=== PATIENT | female | born 1995 | race African-American/Black ===

== ENCOUNTER 2019-08-08 00:59 | Observation (INO) | payer MEDICAID ==
[~2019-08-08] VITALS: Ht 157.5 cm; Wt 50.0 kg
[2019-08-08 01:33] VITALS: BP 123/79
[2019-08-08] MEDS ORDERED: ACETAMINOPHEN 325MG TABLET PO ONE (01:45)
[2019-08-08] MEDS ORDERED: PREN1TAB78 PO (05:49)
== END 2019-08-08 04:22 | disposition home or self-care (01) ==
LOC: ER 00:59 → 8 EST LDRP 04:01
PROVIDERS: ADMIT Obstetrics & Gynecology; ATTEND Obstetrics & Gynecology
DX: O9A.213 Injury, poisoning and certain other consequences of external causes complicating pregnancy, third trimester (principal); S16.1XXA Strain of muscle, fascia and tendon at neck level, initial encounter; S39.012A Strain of muscle, fascia and tendon of lower back, initial encounter; O26.893 Other specified pregnancy related conditions, third trimester; R10.9 Unspecified abdominal pain; Z3A.28 28 weeks gestation of pregnancy; V43.52XA Car driver injured in collision with other type car in traffic accident, initial encounter; Y93.89 Activity, other specified; Y92.89 Other specified places as the place of occurrence of the external cause; Y99.8 Other external cause status
CPT/HCPCS: 76805; 76818; 99284; G0378

== ENCOUNTER 2019-09-04 15:57 | Observation (INO) | payer MEDICAID ==
[~2019-09-04] VITALS: Ht 160 cm; Wt 88.5 kg
[~2019-09-04 15:57] MED LIST: PREN1TAB78 PO
[2019-09-04] MEDS ORDERED: LACTATED RINGERS 1,000 ML IV SCH (16:41)
[2019-09-04 17:22] LABS: CLARITY URINE CLOUDY (CLEAR); COLOR URINE YELLOW (YELLOW); KETONES URINE TRACE (NEGATIVE); LEUKOCYTE ESTERASE URINE TRACE (NEGATIVE); NITRITE URINE NEGATIVE (NEGATIVE); OCCULT BLOOD URINE NEGATIVE (NEGATIVE); PROTEIN URINE NEGATIVE (NEGATIVE)
== END 2019-09-04 18:15 | disposition home or self-care (01) ==
LOC: 8 EST LDRP 15:57
PROVIDERS: ADMIT Obstetrics & Gynecology; ATTEND Obstetrics & Gynecology
DX: O26.893 Other specified pregnancy related conditions, third trimester (principal); O99.89 Other specified diseases and conditions complicating pregnancy, childbirth and the puerperium; Z3A.33 33 weeks gestation of pregnancy; R10.30 Lower abdominal pain, unspecified; M54.5 Low back pain
CPT/HCPCS: 81003; 96360; 99281; G0378

== ENCOUNTER 2019-10-21 22:23 | Observation (INO) | payer MEDICAID ==
[~2019-10-21] VITALS: Ht 160 cm; Wt 88.5 kg
[2019-10-26] MEDS ORDERED: PNV1TABL50 PO (00:39)
[2019-10-26] MEDS ORDERED: FERR325T6 PO (00:39)
== END 2019-10-22 02:23 | disposition home or self-care (01) ==
LOC: 8 EST LDRP 22:23
PROVIDERS: ADMIT Specialist; ATTEND Specialist
DX: O62.9 Abnormality of forces of labor, unspecified (principal); O26.893 Other specified pregnancy related conditions, third trimester; R10.9 Unspecified abdominal pain; Z3A.39 39 weeks gestation of pregnancy
CPT/HCPCS: 59025; 76815; 76818; G0378; 99281

== ENCOUNTER 2024-05-30 00:02 | Emergency (ER) | payer MEDICAID ==
[~2024-05-30] VITALS: Ht 160 cm; Wt 78.8 kg
[~2024-05-30 00:02] MED LIST changes: +FERR325T6 PO; +PNV1TABL50 PO; -PREN1TAB78 PO
[2024-05-30 00:04] VITALS: PULSE 79; RESP 22; O2SAT 99
[2024-05-30 00:10] VITALS: BP 123/84; TEMP 37.1; O2SAT 100
== END 2024-05-30 01:43 | disposition left against medical advice (07) ==
LOC: ER 00:02
DX: R51.9 Headache, unspecified (principal); Z53.21 Procedure and treatment not carried out due to patient leaving prior to being seen by health care provider

== ENCOUNTER 2024-08-24 22:32 | Emergency (ER) | payer MEDICAID, OTHER ==
[~2024-08-24] VITALS: Ht 160 cm; Wt 92.0 kg
[2024-08-24 23:42] VITALS: O2SAT 100
[2024-08-25 00:33] LABS: HCG SCREEN NEGATIVE
[2024-08-25] MEDS: SODIUM CHLORIDE 0.9% 1,000 ML IV ONE (00:44)
[2024-08-25] MEDS: METOCLOPRAMIDE HCL 10MG/2ML VIAL IV ONE (00:44)
[2024-08-25] MEDS: DIPHENHYDRAMINE 50MG/ML VIAL IV ONE (00:45)
[2024-08-25] MEDS: KETOROLAC 15MG/ML VIAL IV ONE (00:49)
[2024-08-25] MEDS: ACETAMINOPHEN 325MG TABLET PO ONE (00:53)
[2024-08-25 03:19] VITALS: BP 109/68; PULSE 69; RESP 12; TEMP 36.7; O2SAT 100
== END 2024-08-25 03:21 | disposition home or self-care (01) ==
LOC: ER 22:32
DX: G43.909 Migraine, unspecified, not intractable, without status migrainosus (principal)
CPT/HCPCS: 84703; 99284; 96361; 96374; 96375; J1200; J1885; J2765; J7030; Z7610